=== PATIENT | female | born 1965 | race Caucasian/White ===

== ENCOUNTER 2018-01-17 08:44 | Day surgery (SDC) | payer BC ==
[2018-01-17] MEDS ORDERED: LIDOCAINE HCL 2% 100 MG/5 ML IJ ONE (08:45)
[2018-01-17] MEDS ORDERED: DIPRIVAN 200 MG/20 ML IV ONE (08:45)
[2018-01-17] MEDS ORDERED: Marcaine 0.5% SDV 10 ML IJ ONE (08:45)
[2018-01-17] MEDS ORDERED: Xylocaine 1% Vial 30 ML PF IJ ONE (08:45)
[2018-01-17] MEDS ORDERED: Lactated Ringers 1,000 ML IV ONE (09:55)
--- NOTE | 2018-01-17 13:08 | XRAY ---
Indication: Right L3-L5 MBB. Intraoperative fluoroscopy was provided for 44 seconds. 4 digital spot images submitted for interpretation demonstrates 3 posterior spinal needle tips projecting over the expected course of the right L3, L4, and L5 nerve roots. Correlate with intraoperative findings/report.
--- NOTE | 2018-01-17 13:08 | XRAY ---
44 seconds fluoroscopy time in surgery for right L3-L5 MBB.
--- NOTE | 2018-01-18 09:18 | OP ---
DATE OF PROCEDURE: 01/17/2018 1016 SURGEON: Justice Simpson D.O. PREOPERATIVE DIAGNOSIS: Degenerative lumbar spine disease, spondylosis, low back pain. POSTOPERATIVE DIAGNOSIS: Degenerative lumbar spine disease, spondylosis, low back pain. PROCEDURE PERFORMED: Right L4, L3, L2 medial branch block under fluoroscopic guidance. DESCRIPTION OF THE PROCEDURE: The patient was taken to the operating room and placed in the prone position on the table. Skin at the injection site was prepped and draped in sterile fashion. Under fluoroscopy, bony anatomy of the targeted injection site was visualized. Induction agent was given as per anesthesia while vital signs were monitored. Local anesthetic agent used is 6 cc of 1% lidocaine. Under fluoroscopic guidance, a #20 gauge standard spinal needle was advanced into the target medial branch through the oblique approach. The medication used for this procedure is preservative-free 0.5 cc of mixed half volume of 1% lidocaine plus half volume of 0.5% Marcaine to each injection site. After the needle was being removed, the skin was cleansed with alcohol and then a bandage was applied. No complications or adverse consequences were observed. The patient was returned to the holding area until stabilized before discharge to home. Preoperative pain level is 9 out of 10 and postoperative pain level is 2 out of 10. The patient will be followed up within ten days after the injection for re-evaluation.
== END 2018-01-17 10:55 | disposition home or self-care (01) ==
LOC: SDC-PAIN 08:44
PROVIDERS: ATTEND Internal Medicine
DX: M46.96 Unspecified inflammatory spondylopathy, lumbar region (principal); M46.1 Sacroiliitis, not elsewhere classified; M51.36 Other intervertebral disc degeneration, lumbar region; M54.5 Low back pain; Z79.891 Long term (current) use of opiate analgesic
CPT/HCPCS: 64493; 64494; 72020; 77003; J2001; J2704

== ENCOUNTER 2018-12-19 11:59 | Day surgery (SDC) | payer BC ==
[2018-12-19] MEDS ORDERED: Ketamine HCl 50 MG/ML IV ONE (12:00)
[2018-12-19] MEDS ORDERED: Sodium Chloride 0.9(Preservative Free) 10 ML IJ ONE (12:00)
[2018-12-19] MEDS ORDERED: Depo-Medrol 40 MG/ML IM ONE (12:00)
[2018-12-19] MEDS ORDERED: Xylocaine 1% Vial 30 ML PF IJ ONE (12:00)
[2018-12-19] MEDS ORDERED: DIPRIVAN 200 MG/20 ML IV ONE (12:00)
[2018-12-19] MEDS ORDERED: Lactated Ringers 1,000 ML IV ONE (15:40)
--- NOTE | 2018-12-19 16:13 | XRAY ---
Indication: Lumbar FEROZ. Intraoperative fluoroscopy was provided for 15 seconds. 2 digital spot images submitted for interpretation demonstrates posterior midline needle tip posterior to the lumbosacral junction. Correlate with intraoperative findings/report.
--- NOTE | 2018-12-19 16:19 | XRAY ---
15 seconds fluoroscopy time in surgery for lumbar FEROZ.
== END 2018-12-19 14:23 | disposition home or self-care (01) ==
LOC: SDC-PAIN 11:59
PROVIDERS: ATTEND Psychiatry & Neurology Pain Medicine
DX: M54.16 Radiculopathy, lumbar region (principal); Z79.899 Other long term (current) drug therapy
CPT/HCPCS: 62323; 72100; 77003; 84703; J1030; J2001; J2704; Q9966

== ENCOUNTER 2019-01-16 11:47 | Day surgery (SDC) | payer BC ==
[2019-01-16] MEDS ORDERED: Ketamine HCl 50 MG/ML IV ONE (11:48)
[2019-01-16] MEDS ORDERED: Sodium Chloride 0.9(Preservative Free) 10 ML IJ ONE (11:48)
[2019-01-16] MEDS ORDERED: DIPRIVAN 200 MG/20 ML IV ONE (11:48)
[2019-01-16] MEDS ORDERED: Depo-Medrol 40 MG/ML IM ONE (11:48)
[2019-01-16] MEDS ORDERED: Lactated Ringers 1,000 ML IV ONE (14:24)
--- NOTE | 2019-01-16 16:17 | XRAY ---
15 seconds fluoroscopy time in surgery for right L4-S1 FEROZ.
--- NOTE | 2019-01-17 05:08 | XRAY ---
Indication: Right L4-S1 FEROZ. Intraoperative fluoroscopy was provided for 15 seconds. 2 digital spot images submitted for interpretation demonstrate posterior needle tips projected over the expected course of the right L4 and L5 nerve roots. A small contrast has been injected for needle tip placement. Correlate with intraoperative findings/report.
== END 2019-01-16 13:10 | disposition home or self-care (01) ==
LOC: SDC-PAIN 11:47
PROVIDERS: ATTEND Psychiatry & Neurology Pain Medicine
DX: M54.16 Radiculopathy, lumbar region (principal)
CPT/HCPCS: 64483; 64484; 72020; 77003; 84703; J1030; J2704; Q9966

== ENCOUNTER 2019-09-11 14:37 | Day surgery (SDC) | payer BC ==
[2019-09-11] MEDS ORDERED: Xylocaine 1% Vial 30 ML PF IJ ONE (14:38)
[2019-09-11] MEDS ORDERED: Sodium Chloride 0.9(Preservative Free) 10 ML IJ ONE (14:38)
[2019-09-11] MEDS ORDERED: Depo-Medrol 40 MG/ML IM ONE (14:38)
--- NOTE | 2019-09-11 16:52 | XRAY ---
Indication: Lumbar FEROZ. Intraoperative fluoroscopy was provided for 17 seconds. 3 digital spot images submitted for interpretation demonstrates posterior midline needle tip just posterior to the lumbosacral junction. Small amount of contrast injected for needle tip placement. Correlate with intraoperative findings/report.
--- NOTE | 2019-09-11 16:59 | XRAY ---
17 seconds fluoroscopy time in surgery for lumbar FEROZ.
== END 2019-09-11 16:32 | disposition home or self-care (01) ==
LOC: SDC-PAIN 14:37
PROVIDERS: ATTEND Psychiatry & Neurology Pain Medicine
DX: M54.16 Radiculopathy, lumbar region (principal); Z79.899 Other long term (current) drug therapy
CPT/HCPCS: 62323; 72100; 77003; J1030; J2001; Q9966

== ENCOUNTER 2019-10-09 11:04 | Day surgery (SDC) | payer BC ==
[2019-10-09] MEDS ORDERED: Depo-Medrol 40 MG/ML IM ONE (11:05)
[2019-10-09] MEDS ORDERED: Sodium Chloride 0.9(Preservative Free) 10 ML IJ ONE (11:05)
[2019-10-09] MEDS ORDERED: DIPRIVAN 200 MG/20 ML IV ONE (12:29)
[2019-10-09] MEDS ORDERED: Ketamine HCl 50 MG/ML ONE (12:29)
--- NOTE | 2019-10-09 14:11 | XRAY ---
Indication: Right L3-L5 transforaminal FEROZ. Intraoperative fluoroscopy was provided for 40 seconds. 4 digital spot images submitted for interpretation demonstrates posterior needle tips projecting over the expected course of the right L3 and L4 nerve roots. Small amount of contrast injected for needle tip placement. Correlate with intraoperative findings/report.
--- NOTE | 2019-10-09 14:13 | XRAY ---
Indication: Right piriformis injection. Intraoperative fluoroscopy was provided for 5 seconds. Single digital spot images submitted for interpretation demonstrates posterior needle tip projecting over the expected right piriformis muscle. Small amount of contrast injected for needle tip placement. Correlate with intraoperative findings/report.
--- NOTE | 2019-10-09 14:31 | XRAY ---
40 seconds fluoroscopy time in surgery for right L3-L5 transforaminal FEROZ.
--- NOTE | 2019-10-09 14:41 | XRAY ---
5 seconds fluoroscopy time in surgery for right piriformis muscle injection.
[2019-10-09] MEDS ORDERED: Lactated Ringers 1,000 ML IV ONE (14:53)
== END 2019-10-09 12:55 | disposition home or self-care (01) ==
LOC: SDC-PAIN 11:04
PROVIDERS: ATTEND Psychiatry & Neurology Pain Medicine
DX: M79.18 Myalgia, other site (principal); M54.16 Radiculopathy, lumbar region
CPT/HCPCS: 20552; 64483; 64484; 72020; 72100; 77002; 77003; J1030; J2704; Q9966

== ENCOUNTER 2021-01-15 06:01 | Day surgery (SDC) | payer BC ==
[2021-01-15] MEDS ORDERED: Lactated Ringers 1,000 ML IV SCH (07:00)
[2021-01-15] MEDS ORDERED: DIPRIVAN 200 MG/20 ML IV ONE (07:48)
[2021-01-15] MEDS ORDERED: Versed 2 MG/2 ML Injection ONE (07:48)
--- NOTE | 2021-01-15 08:36 | OP ---
SURGERY DATE/TIME: 01/15/2021 0751 PREOPERATIVE DIAGNOSIS: Screening exam. POSTOPERATIVE DIAGNOSIS: Small polyp in the transverse colon. PROCEDURE: Colonoscopy with cold forceps biopsy. SURGEON: Dr. Milner. ANESTHESIA: MAC. Medications given by anesthesia department. HISTORY: The patient is a 55 year-old white female presenting now for screening colonoscopy. She was appraised of the risks of the procedure including the risk of perforation, phlebitis, untoward reaction to medication, bleeding and missed lesions. The patient verbalized her understanding and desired to have the procedure performed. DESCRIPTION OF PROCEDURE: The patient was given the medications by the anesthesia department. She had continuous pulse oximetry, ECG monitoring, intermittent blood pressure monitoring and tidal CO2 monitoring during the examination. She was placed in the left lateral decubitus position. A digital rectal examination was performed and revealed normal anal sphincter tone and no masses. The flexible Olympus pediatric colonoscope was used to intubate the rectum. A view of the colon was developed sequentially to the cecum. Upon insertion and withdrawal, including a retroflex view in the rectum, was noted one small polyp in the transverse colon that was destroyed using two passes of the cold forceps biopsy. The scope was removed from the patient who tolerated the procedure well and was sent back to OP recovery in good condition. The prep was noted to be good.
[2021-01-15 08:42] VITALS: O2SAT 97
[2021-01-15 09:05] VITALS: BP 150/91; PULSE 78
== END 2021-01-15 09:29 | disposition home or self-care (01) ==
LOC: SDC 06:01
PROVIDERS: ATTEND Family Medicine
DX: Z12.11 Encounter for screening for malignant neoplasm of colon (principal); D12.3 Benign neoplasm of transverse colon; Z79.899 Other long term (current) drug therapy
CPT/HCPCS: 88305; J2250; J2704

== ENCOUNTER 2021-07-28 07:45 | Day surgery (SDC) | payer BC ==
[2021-07-28] MEDS ORDERED: Decadron 4 MG INJ IV ONE (07:46)
[2021-07-28] MEDS ORDERED: Xylocaine 1% Vial 30 ML PF IJ ONE (07:46)
[2021-07-28] MEDS ORDERED: Depo-Medrol 40 MG/ML IM ONE (07:46)
[2021-07-28] MEDS ORDERED: Sodium Chloride 0.9% 10 ML FLUSH Syringe IJ ONE (07:46)
--- NOTE | 2021-07-28 10:45 | XRAY ---
Indication: Left L4-S1 transforaminal FEROZ and left piriformis injection. Intraoperative fluoroscopy provided for 49 seconds. 5 digital spot image submitted for interpretation demonstrates posterior needle tips projecting over the expected left L4 and L5 nerve roots. Additional needle tip projects over the expected left piriformis muscle. Small amount of contrast injected for all needle tip placement. Correlate with intraoperative findings/report.
--- NOTE | 2021-07-28 11:52 | XRAY ---
49 seconds fluoroscopy time in surgery for injection of the left piriformis muscle and left L4-S1 transforaminal FEROZ.
== END 2021-07-28 09:26 | disposition home or self-care (01) ==
LOC: SDC-PAIN 07:45
PROVIDERS: ATTEND Psychiatry & Neurology Pain Medicine
DX: M54.16 Radiculopathy, lumbar region (principal); M79.18 Myalgia, other site; Z79.899 Other long term (current) drug therapy
CPT/HCPCS: 20552; 64483; 72100; 77002; 77003; J1030; J1100; J2001; Q9966

== ENCOUNTER 2024-02-16 06:02 | Day surgery (SDC) | payer BC ==
[2024-02-16 06:20] VITALS: RESP 18; TEMP 97.6; O2SAT 100
[2024-02-16] MEDS: Lactated Ringers 1,000 ML IV SCH (06:51)
[2024-02-16] MEDS ORDERED: Xylocaine-Mpf 2% 5 Ml Vial ONE (07:28)
[2024-02-16] MEDS ORDERED: Versed 2 MG/2 ML Injection ONE (07:28)
[2024-02-16] MEDS ORDERED: DIPRIVAN 200 MG/20 ML IV ONE ×2 (07:30→07:46)
[2024-02-16 08:39] VITALS: BP 111/76; PULSE 66
--- NOTE | 2024-02-18 10:39 | OP ---
SURGERY DATE/TIME: 02/16/2024 PREOPERATIVE DIAGNOSIS: Screening exam. POSTOPERATIVE DIAGNOSIS: Normal colon. PROCEDURE: Colonoscopy. SURGEON: Beck Milner MD ANESTHESIA: Medications were given by the anesthesia department. INDICATIONS: The patient is a 59-year-old white female presenting for screening colon exam. The patient reports she did have polyps removed at some point in the past, and it was felt she needed to have an endoscopic evaluation. She was appraised the risks of the procedure including risk of perforation, phlebitis, untoward reaction to medication, bleeding, and missed lesions. The patient verbalized her understanding and desired to have the procedure performed. DESCRIPTION OF PROCEDURE AND FINDINGS: The patient was given medication by the anesthesia department. She had continued pulse oximetry, ECG monitoring, and intermittent blood pressure monitoring during the examination. She was placed in the left lateral decubitus position. Digital rectal examination was performed and revealed normal anal sphincter tone and no masses. The flexible Olympus videocolonoscope was used to intubate the rectum. A view of the colon was developed sequentially to the cecum. Upon insertion and withdrawal including retroflexion in the rectum, no mucosal lesions were encountered. The scope was removed. The patient tolerated the procedure well and sent back down to outpatient recovery in good condition. The prep was noted to be fair to good.
== END 2024-02-16 08:39 | disposition home or self-care (01) ==
LOC: SDC 06:02
PROVIDERS: ATTEND Family Medicine
DX: Z12.11 Encounter for screening for malignant neoplasm of colon (principal)
CPT/HCPCS: J2250; J2704

== ENCOUNTER 2024-05-09 13:29 | Day surgery (SDC) | payer BC ==
[2024-05-09] MEDS ORDERED: Sodium Chloride 0.9(Preservative Free) 10 ML IJ ONE (13:30)
[2024-05-09] MEDS ORDERED: LIDOCAINE HCL 1% 50 MG/5 ML VL PF IJ ONE (13:30)
[2024-05-09] MEDS ORDERED: Decadron 4 MG INJ IV ONE (13:30)
[2024-05-09] MEDS ORDERED: Lactated Ringers 1,000 ML IV ONE (15:13)
[2024-05-09] MEDS ORDERED: DIPRIVAN 200 MG/20 ML IV ONE (15:38)
--- NOTE | 2024-05-09 16:56 | XRAY ---
Indication: Left piriformis injection. Intraoperative fluoroscopy provided for 7 seconds. Single digital spot image submitted for interpretation demonstrates posterior needle tip projecting over the left piriformis. Small amount of contrast injected for needle tip placement. Correlate with intraoperative findings/report.
--- NOTE | 2024-05-09 16:56 | XRAY ---
Indication: Left L4-S1 transforaminal FEROZ. Intraoperative fluoroscopy provided for 27 seconds. 6 digital spot image submitted for interpretation demonstrates posterior needle tips projecting over the expected left L4 and L5 nerve roots. Small amount of contrast injected for needle tip placement. Correlate with intraoperative findings/report.
--- NOTE | 2024-05-09 17:32 | XRAY ---
27 seconds of fluoroscopy was used in surgery for a left L4-S1 transforaminal FEROZ.
--- NOTE | 2024-05-09 17:32 | XRAY ---
7 seconds of fluoroscopy was used in surgery for a left piriformis injection.
== END 2024-05-09 16:10 | disposition home or self-care (01) ==
LOC: SDC-PAIN 13:29
PROVIDERS: ATTEND Psychiatry & Neurology Pain Medicine
DX: M54.16 Radiculopathy, lumbar region (principal); M79.18 Myalgia, other site
CPT/HCPCS: 20552; 64483; 64484; 72100; 72170; 77002; 77003; J1100; J2001; J2704; Q9966